=== PATIENT | male | born 1980 | race Two or more races ===

== ENCOUNTER 2018-12-13 11:07 | Inpatient (IN) | payer MEDICAID | END 2018-12-20 18:32 | disposition home or self-care (01) | LOC: ER 11:07 → OVERFLOW 13:54 → CENTRAL 17:08 | PROC: 0YU54JZ Supplement Right Inguinal Region with Synthetic Substitute, Percutaneous Endoscopic Approach (ICD-10-PCS; principal; 2018-12-18 08:22) | PROC: 8E0W4CZ Robotic Assisted Procedure of Trunk Region, Percutaneous Endoscopic Approach (ICD-10-PCS; 2018-12-18 08:22) | DX: K40.90 Unilateral inguinal hernia, without obstruction or gangrene, not specified as recurrent (principal); E66.9 Obesity, unspecified; H11.001 Unspecified pterygium of right eye ==